=== PATIENT | male | born 1985 | race Caucasian/White ===

== ENCOUNTER 2020-04-21 10:34 | Emergency (ER) | payer OTHER, SELFPAY ==
[2020-04-21] VITALS (16 sets, daily range): BP systolic 177–198; BP diastolic 111–132; PULSE 78–113; RESP 20; TEMP 35.6; O2SAT 95–99; BMI 38.7
[2020-04-21 11:57] LABS: Bilirubin Urine UA NEGATIVE (NEGATIVE); Color Urine UA RED; Glucose Urine UA NEGATIVE (Negative); Ketones Urine UA 2+ (NEGATIVE); Leukocyte Esterase Urine UA NEGATIVE (NEGATIVE); Nitrite Urine UA NEGATIVE (Negative); Occult Blood Urine UA 3+ (Negative); Protein Urine UA 2+ (Negative); Specific Gravity Urine UA 1.025 (1.000-1.035); Urobilinogen Urine UA 0.2 E.U./dL (0.2); pH Urine UA 5.5 (4.5-8.0)
[2020-04-21 12:03] LABS: Appearance Urine UA CLOUDY
[2020-04-21 12:04] LABS: Amorphous Sediment Urine 1+; Bacteria Urine Occasional (0-1); Culture Indicated Urine Specimen Cultured; RBC Urine >100/HPF (0-5/HPF); Squamous Epithelial Cell Urine 0-1 /HPF (0-5/HPF); WBC Urine 1-5/HPF (0-5/HPF)
[2020-04-21 12:31] LABS: Add Manual Diff / Slide Review NO; Basophils Absolute Auto 0 /uL (0-100); Basophils Percent Auto 0.3 % (0-2); Eosinophils Absolute Auto 200 /uL (0-450); Eosinophils Percent Auto 1.9 % (2-4); Hematocrit 51.5 % (41-53); Hemoglobin 17.5 g/dL (13.5-17.5); Lymphocytes Absolute Auto 1300 /uL (1100-4500); Lymphocytes Percent Auto 15.4 % (25-40); Mean Corpuscular Hemoglobin 31.5 PG (26-34); Mean Corpuscular Volume 92.5 fL (80-100); Monocytes Absolute Auto 600 /uL (0-900); Monocytes Percent Auto 6.4 % (3-14); Neutrophils Absolute Auto 6600 /uL (1500-7000); Platelet Count 331 X10^3/uL (150-400); Red Blood Cell Count 5.57 X10^6/uL (4.5-5.9); Red Cell Distribution Width 13.1 % (11.6-14.8); White Blood Cell Count 8.7 X10^3/uL (4.5-11.0)
[2020-04-21 12:38] LABS: Alanine Aminotransferase 58 IU/L (<50); Albumin 5.1 g/dL (3.5-5.0); Albumin Globulin Ratio 1.5 (1.0-2.8); Alkaline Phosphatase 73 U/L (38-126); Aspartate Aminotransferase 42 IU/L (17-59); Blood Urea Nitrogen 16 mg/dL (9-20); Calcium 9.3 mg/dL (8.4-10.2); Carbon Dioxide 24 mmol/L (22-32); Chloride 103 mmol/L (98-107); Estimated Glomerular Filt Rate > 60.0 mL/min (>60); Globulin 3.3 g/dL (1.7-4.1); Glucose 114 mg/dL (70-100); HEMOLYSIS < 15 (0-50); Lipase 28 U/L (23-300); Potassium 3.9 mmol/L (3.4-5.1); Sodium 136 mmol/L (137-145); Total Protein 8.4 g/dL (6.3-8.2)
--- NOTE | 2020-04-21 13:10 | ED.MALEGU ---
HPI - Male Genitourinary <BRIAN Torres-BC - Last Filed: 04/21/20 16:18> General Chief complaint: Urogenital-Male Stated complaint: dark colored urine Red Time Seen by Provider: 04/21/20 11:11 Source: patient Mode of arrival: Family Vehicle Limitations: no limitations History of Present Illness HPI Narrative: The patient is a 34-year-old male current everyday smoker who denies medical history presents with a chief complaint of dark red urine that started today. He denies any pain. Denies any dysuria urgency or frequency. Denies any possibility of sexually transmitted infections. He does note that he is increasingly aware of what he puts in his body of the recently started a ketogenic diet 5 days ago. He states he tries to drink lots of water. No fevers muscle aches or chills. Denies any abdominal pain. Denies any testicular pain. Inactivity at his gym and at work. Initially states that his urine was dark. Related Data Home Medications Medication Instructions Recorded Confirmed [id number] 1 tab PO Q4-6H PRN 04/21/20 04/21/20 [Excedrin Migraine] Previous Rx's Medication Instructions Recorded lisinopril 5 mg PO DAILY #30 tab 04/21/20 nitrofurantoin monohyd/m-cryst 100 mg PO Q12H 7 Days #14 cap 04/21/20 [Macrobid] Allergies Allergy/AdvReac Type Severity Reaction Status Date / Time No Known Drug Allergies Allergy Verified 04/21/20 11:22 Review of Systems <ROXANNE Torres - Last Filed: 04/21/20 16:18> Review of Systems Narrative: GENERAL: Denies chills, fatigue, malaise, fever, sweats. HEENT: Denies sinus pain, ear pain, sore throat, difficulty swallowing, dizziness. RESPIRATORY: Denies dyspnea, cough, wheezing, hemoptysis, sputum. CARDIOVASCULAR: Denies chest pain, palpitations, orthopnea, edema, GASTROINTESTINAL: Denies nausea, vomiting, abdominal pain, diarrhea, constipation, melena. : See HPI MUSCULOSKELETAL: denies weakness, joint pain, or bony pain SKIN: Denies rash, skin lesions, or other NEUROLOGIC: Denies weakness, headache, numbness, change in speech, confusion, seizures, incoordination. PSYCHIATRIC: No concerning psychosocial issues. 12 point review of systems is negative except for those stated above Patient History <ROXANNE Torres - Last Filed: 04/21/20 16:18> Social History Smoking Status: Current every day smoker Smoking Status: Current every day smoker tobacco type: cigarettes alcohol intake frequency: 0-2 drinks per day Substance Use Type: marijuana Exam <ROXANNE Torres - Last Filed: 04/21/20 16:18> Narrative Exam Narrative: GENERAL: This is a well-nourished, well-developed patient, in no acute distress HEAD: Atraumatic. Normocephalic. No temporal or scalp tenderness. EYES: Pupils equal round and reactive. Extraocular motions intact. No scleral icterus. No injection or drainage. ENT: Nose without bleeding, purulent drainage or septal hematoma. Wearing a mask Airway patent. NECK: Trachea midline. No JVD or lymphadenopathy. Supple, nontender, no meningeal signs. CARDIOVASCULAR: Regular rate and rhythm RESPIRATORY: Clear to auscultation. Breath sounds equal bilaterally. No wheezes, rales, or rhonchi. No cough. No increased respiratory effort. No accessory muscle use. GASTROINTESTINAL: Abdomen soft, non-tender, nondistended. No hepato-splenomegaly, or palpable masses. No guarding. EXTREMITIES: No clubbing, cyanosis, or edema. No joint tenderness, effusion, or edema noted. BACK: Nontender without deformity or crepitance. No flank tenderness. NEURO: AOx3. SKIN: No rash or erythema on visible skin Initial Vital Signs Initial Vital Signs: Vital Signs Temperature 96.0 F L 04/21/20 11:23 Pulse Rate 113 H 04/21/20 11:23 Respiratory Rate 20 04/21/20 11:23 Blood Pressure 188/132 H 04/21/20 11:23 Pulse Oximetry 95 04/21/20 11:23 <Marija Arnold DO - Last Filed: 04/21/20 18:15> Initial Vital Signs Initial Vital Signs: Vital Signs Temperature 96.0 F L 04/21/20 11:23 Pulse Rate 113 H 04/21/20 11:23 Respiratory Rate 20 04/21/20 11:23 Blood Pressure 188/132 H 04/21/20 11:23 Pulse Oximetry 95 04/21/20 11:23 Scores <Marija Luz, PATIENT BILLER-BC - Last Filed: 04/21/20 16:18> GCS Jayson coma scale eye opening: Spontaneous Arcade coma scale verbal response: Orientated Arcade coma scale motor response: Obey commands Jayson coma scale total score: 15 Course <Marija LuzMARISOLBC - Last Filed: 04/21/20 16:18> Orders Ordered: ED Orders 04/21/20 11:23 Urinalysis and Microscopic Stat Urine Culture Stat 04/21/20 11:37 Complete Blood Count AUTO DIFF Stat Comprehensive Metabolic Panel Stat Creatine Kinase Stat Lipase Stat 04/21/20 13:33 CT kidney ureter bladder (KUB) Stat Discontinued Medications Acetaminophen (Acetaminophen 325 Mg Tablet) 975 mg PO NOW ONE Stop: 04/21/20 13:34 Last Admin: 04/21/20 13:50 Dose: 975 mg Documented by: JERICA Sodium Chloride (Normal Saline 0.9%) 1,000 mls @ 1,000 mls/hr IV BOLUS ONE Stop: 04/21/20 13:21 Lisinopril (Lisinopril 5 Mg Tablet) 5 mg PO NOW ONE Stop: 04/21/20 13:34 Last Admin: 04/21/20 13:49 Dose: 5 mg Documented by: JERICA Vital Signs Vital signs: Vital Signs - 8 hr 04/21/20 11:23 04/21/20 12:20 04/21/20 12:30 Temperature 96.0 F L Pulse Rate 113 H 90 92 H Respiratory Rate 20 Blood Pressure 188/132 H 189/120 H Pulse Oximetry 95 98 97 04/21/20 12:35 04/21/20 12:59 04/21/20 13:00 Temperature Pulse Rate 90 90 88 Respiratory Rate Blood Pressure 180/114 H 195/121 H Pulse Oximetry 97 98 98 04/21/20 13:19 04/21/20 13:30 04/21/20 13:40 Temperature Pulse Rate 96 H 90 88 Respiratory Rate Blood Pressure 188/116 H 177/111 H Pulse Oximetry 98 99 98 04/21/20 13:49 04/21/20 13:50 04/21/20 14:00 Temperature Pulse Rate 78 Respiratory Rate Blood Pressure 177/111 H 185/119 H 195/128 H Pulse Oximetry 04/21/20 14:31 04/21/20 15:08 04/21/20 15:09 Temperature Pulse Rate 81 81 Respiratory Rate Blood Pressure 197/119 H 198/132 H Pulse Oximetry 98 98 04/21/20 15:10 Temperature Pulse Rate 84 Respiratory Rate Blood Pressure 198/125 H Pulse Oximetry 98 <Marija Arnold, - Last Filed: 04/21/20 18:15> Orders Ordered: ED Orders 04/21/20 11:23 Urinalysis and Microscopic Stat Urine Culture Stat 04/21/20 11:37 Complete Blood Count AUTO DIFF Stat Comprehensive Metabolic Panel Stat Creatine Kinase Stat Lipase Stat 04/21/20 13:33 CT kidney ureter bladder (KUB) Stat Discontinued Medications Acetaminophen (Acetaminophen 325 Mg Tablet) 975 mg PO NOW ONE Stop: 04/21/20 13:34 Last Admin: 04/21/20 13:50 Dose: 975 mg Documented by: JERICA Sodium Chloride (Normal Saline 0.9%) 1,000 mls @ 1,000 mls/hr IV BOLUS ONE Stop: 04/21/20 13:21 Lisinopril (Lisinopril 5 Mg Tablet) 5 mg PO NOW ONE Stop: 04/21/20 13:34 Last Admin: 04/21/20 13:49 Dose: 5 mg Documented by: JERICA Vital Signs Vital signs: Vital Signs - 8 hr 04/21/20 11:23 04/21/20 12:20 04/21/20 12:30 Temperature 96.0 F L Pulse Rate 113 H 90 92 H Respiratory Rate 20 Blood Pressure 188/132 H 189/120 H Pulse Oximetry 95 98 97 04/21/20 12:35 04/21/20 12:59 04/21/20 13:00 Temperature Pulse Rate 90 90 88 Respiratory Rate Blood Pressure 180/114 H 195/121 H Pulse Oximetry 97 98 98 04/21/20 13:19 04/21/20 13:30 04/21/20 13:40 Temperature Pulse Rate 96 H 90 88 Respiratory Rate Blood Pressure 188/116 H 177/111 H Pulse Oximetry 98 99 98 04/21/20 13:49 04/21/20 13:50 04/21/20 14:00 Temperature Pulse Rate 78 Respiratory Rate Blood Pressure 177/111 H 185/119 H 195/128 H Pulse Oximetry 04/21/20 14:31 04/21/20 15:08 04/21/20 15:09 Temperature Pulse Rate 81 81 Respiratory Rate Blood Pressure 197/119 H 198/132 H Pulse Oximetry 98 98 04/21/20 15:10 Temperature Pulse Rate 84 Respiratory Rate Blood Pressure 198/125 H Pulse Oximetry 98 MDM - Male Genitourinary <Marija Luz PATIENT BILLER-BC - Last Filed: 04/21/20 16:18> Lab Data Attestation: I reviewed the patient's lab results. Result diagrams: 04/21/20 11:37 04/21/20 11:37 Labs: Lab Results 04/21/20 04/21/20 04/21/20 Range/Units 11:23 11:37 11:37 WBC 8.7 (4.5-11.0) X10^3/uL RBC 5.57 (4.5-5.9) X10^6/uL Hgb 17.5 (13.5-17.5) g/dL Hct 51.5 (41-53) % MCV 92.5 (80-100) fL MCH 31.5 (26-34) PG MCHC 34.0 (30-36) % RDW 13.1 (11.6-14.8) % Plt Count 331 (150-400) X10^3/uL Neut % (Auto) 76.0 H (50-75) % Lymph % (Auto) 15.4 L (25-40) % Calloway % (Auto) 6.4 (3-14) % Eos % (Auto) 1.9 L (2-4) % Baso % (Auto) 0.3 (0-2) % Neut # (Auto) 6600 (8677-2593) /uL Lymph # (Auto) 1300 (2772-2761) /uL Calloway # (Auto) 600 (0-900) /uL Eos # (Auto) 200 (0-450) /uL Baso # (Auto) 0 (0-100) /uL Sodium 136 L (137-145) mmol/L Potassium 3.9 (3.4-5.1) mmol/L Chloride 103 (98-107) mmol/L Carbon Dioxide 24 (22-32) mmol/L BUN 16 (9-20) mg/dL Creatinine 0.80 (0.66-1.25) mg/dL Estimated GFR > 60.0 (>60) mL/min BUN/Creatinine Ratio 20.0 (6-22) Glucose 114 H (70-100) mg/dL Calcium 9.3 (8.4-10.2) mg/dL Total Bilirubin 1.0 (0.2-1.3) mg/dL AST 42 (17-59) IU/L ALT 58 H (<50) IU/L Alkaline Phosphatase 73 (38-126) U/L Total Creatine Kinase (55-170) U/L Total Protein 8.4 H (6.3-8.2) g/dL Albumin 5.1 H (3.5-5.0) g/dL Globulin 3.3 (1.7-4.1) g/dL Albumin/Globulin Ratio 1.5 (1.0-2.8) Lipase 28 (23-300) U/L Urine Color Red Urine Appearance Cloudy Urine pH 5.5 (4.5-8.0) Ur Specific Lisco 1.025 (1.000-1.035) Urine Protein 2+ H (Negative) Urine Glucose (UA) Negative (Negative) g/dL Urine Ketones 2+ H (NEGATIVE) Urine Occult Blood 3+ H (Negative) Urine Nitrate Negative (Negative) Urine Bilirubin Negative (NEGATIVE) Urine Urobilinogen 0.2 (0.2) E.U./dL Ur Leukocyte Esterase Negative (NEGATIVE) Urine RBC >100/hpf H (0-5/HPF) Urine WBC 1-5/hpf (0-5/HPF) Ur Squamous Epith Cells 0-1 /hpf (0-5/HPF) Amorphous Sediment 1+ Urine Bacteria Occasional (0-1) (None) Ur Culture Indicated? Specimen cultured 04/21/20 Range/Units 11:37 WBC (4.5-11.0) X10^3/uL RBC (4.5-5.9) X10^6/uL Hgb (13.5-17.5) g/dL Hct (41-53) % MCV (80-100) fL MCH (26-34) PG MCHC (30-36) % RDW (11.6-14.8) % Plt Count (150-400) X10^3/uL Neut % (Auto) (50-75) % Lymph % (Auto) (25-40) % Calloway % (Auto) (3-14) % Eos % (Auto) (2-4) % Baso % (Auto) (0-2) % Neut # (Auto) (7199-0555) /uL Lymph # (Auto) (1506-4314) /uL Calloway # (Auto) (0-900) /uL Eos # (Auto) (0-450) /uL Baso # (Auto) (0-100) /uL Sodium (137-145) mmol/L Potassium (3.4-5.1) mmol/L Chloride (98-107) mmol/L Carbon Dioxide (22-32) mmol/L BUN (9-20) mg/dL Creatinine (0.66-1.25) mg/dL Estimated GFR (>60) mL/min BUN/Creatinine Ratio (6-22) Glucose (70-100) mg/dL Calcium (8.4-10.2) mg/dL Total Bilirubin (0.2-1.3) mg/dL AST (17-59) IU/L ALT (<50) IU/L Alkaline Phosphatase (38-126) U/L Total Creatine Kinase 285 H (55-170) U/L Total Protein (6.3-8.2) g/dL Albumin (3.5-5.0) g/dL Globulin (1.7-4.1) g/dL Albumin/Globulin Ratio (1.0-2.8) Lipase (23-300) U/L Urine Color Urine Appearance Urine pH (4.5-8.0) Ur Specific Lisco (1.000-1.035) Urine Protein (Negative) Urine Glucose (UA) (Negative) g/dL Urine Ketones (NEGATIVE) Urine Occult Blood (Negative) Urine Nitrate (Negative) Urine Bilirubin (NEGATIVE) Urine Urobilinogen (0.2) E.U./dL Ur Leukocyte Esterase (NEGATIVE) Urine RBC (0-5/HPF) Urine WBC (0-5/HPF) Ur Squamous Epith Cells (0-5/HPF) Amorphous Sediment Urine Bacteria (None) Ur Culture Indicated? Urine Dip Bedside Urine Glucose Negative Bedside Urine Bilirubin - Negative Bedside Urine Ketone +++ 80 Urine Specific Lisco 1.030 Bedside Urine Occult Blood +++ Bedside Urine pH 5.0 Bedside Urine Protein ++ 100 Bedside Urine Urobilinogen +/- 1mg Bedside Urine Nitrite + Positive Bedside Urine Leukocytes + [address] scan - abdomen/pelvis: Radiologist's Impression: [address] [place] [id number] Scan ReportSigned Patient: Prabha Villa#: [id number]: 1985Acct:[id number]/Sex: 34 / MDate of Service: 04/21/20Loc: EDAccession Number: [id number] Procedure: CT kidney ureter bladder (KUB) Ordering Provider: Marija Luz [facility]- PROCEDURE: CT KIDNEY URETER BLADDER (KUB) INDICATIONS: back pain, hematuria TECHNIQUE: Noncontrast 5 mm thick sections acquired from the diaphragms to the symphysis. 5 mm thick coronal and sagittal reformats were then performed. For radiation dose reduction, the following was used: automated exposure control, adjustment of mA and/or kV according to patient size. COMPARISON: None. FINDINGS: Image quality: Excellent. Lung bases: Lung bases are clear. Heart size is normal. Urinary system: Right kidney: Faint 1 mm lower pole stone. No hydronephrosis. Right ureter: Unremarkable Left kidney: Incidental cyst. No stone or hydronephrosis. Left ureter: Unremarkable. Bladder: No bladder stones. No bladder wall thickening. Other solid organs: Liver is normal in size. Gallbladder is surgically absent. Pancreas is normal in contours. Spleen is normal in size. No adrenal nodules. Peritoneum and bowel: Unenhanced bowel loops demonstrate normal wall thickness and caliber. No free fluid or air. Mild diverticulosis without evidence of diverticulitis. Normal appendix. Nodes and vessels: No retroperitoneal or mesenteric adenopathy by size criteria. Aorta and inferior vena cava are normal in caliber. Abdominal wall: No ventral hernias. Pelvis: No free pelvic fluid. No inguinal hernias or adenopathy. Bones: No suspicious bony lesions. No vertebral body compression fractures. Disc bulge and facet arthropathy at L4-L5 resulting canal stenosis. IMPRESSION: 1. Faint 1 mm nonobstructing right renal stone. 2. No hydronephrosis. No ureteral stone. 3. Remote cholecystectomy. 4. No evidence acute abdominal process. 5. Lumbar canal stenosis at L4-L5. Dictated by: Zheng Padilla M.D. on 04/21/2020 at 12:50 Approved by: Zheng Padilla M.D. on 04/21/2020 at 12:54 MDM Narrative Medical decision making narrative: The patient is a 34-year-old male who presents with a chief complaint of hematuria. Renal function is reassuring, though urine is nitrite positive. Given his hypertension throughout his stay in the ER, we did get a CT KUB to evaluate for obstructive etiology etcetera. This came back with a the small stone in his right kidney, but no ureteral stones. Patient was placed on Macrobid for urinary tract infection as he is nitrate positive urine. Did encourage resting And pushing fluids. Given his discolored urine, so as well as increased workout regimen, CK obtain which was not a rate just slightly elevated. We did give him lisinopril the emergency department, discussed taking that once a day. Discussed plan of care with Dr Arnold. I did discuss at length with the patient is very strict emergency department return precautions particularly chest pain shortness of breath thunderclap sensation as well as the importance of following up with primary care provider in the next few days. I did give him contact information the [facility] health enterprise resource planning consultant. Patient has no questions or concerns upon discharge states understanding of return precautions as well as follow-up care. Urine culture being completed. <Marija Arnold, DO - Last Filed: 04/21/20 18:15> Lab Data Labs: Lab Results 04/21/20 04/21/20 04/21/20 Range/Units 11:23 11:37 11:37 WBC 8.7 (4.5-11.0) X10^3/uL RBC 5.57 (4.5-5.9) X10^6/uL Hgb 17.5 (13.5-17.5) g/dL Hct 51.5 (41-53) % MCV 92.5 (80-100) fL MCH 31.5 (26-34) PG MCHC 34.0 (30-36) % RDW 13.1 (11.6-14.8) % Plt Count 331 (150-400) X10^3/uL Neut % (Auto) 76.0 H (50-75) % Lymph % (Auto) 15.4 L (25-40) % Calloway % (Auto) 6.4 (3-14) % Eos % (Auto) 1.9 L (2-4) % Baso % (Auto) 0.3 (0-2) % Neut # (Auto) 6600 (7258-3401) /uL Lymph # (Auto) 1300 (0857-5897) /uL Calloway # (Auto) 600 (0-900) /uL Eos # (Auto) 200 (0-450) /uL Baso # (Auto) 0 (0-100) /uL Sodium 136 L (137-145) mmol/L Potassium 3.9 (3.4-5.1) mmol/L Chloride 103 (98-107) mmol/L Carbon Dioxide 24 (22-32) mmol/L BUN 16 (9-20) mg/dL Creatinine 0.80 (0.66-1.25) mg/dL Estimated GFR > 60.0 (>60) mL/min BUN/Creatinine Ratio 20.0 (6-22) Glucose 114 H (70-100) mg/dL Calcium 9.3 (8.4-10.2) mg/dL Total Bilirubin 1.0 (0.2-1.3) mg/dL AST 42 (17-59) IU/L ALT 58 H (<50) IU/L Alkaline Phosphatase 73 (38-126) U/L Total Creatine Kinase (55-170) U/L Total Protein 8.4 H (6.3-8.2) g/dL Albumin 5.1 H (3.5-5.0) g/dL Globulin 3.3 (1.7-4.1) g/dL Albumin/Globulin Ratio 1.5 (1.0-2.8) Lipase 28 (23-300) U/L Urine Color Red Urine Appearance Cloudy Urine pH 5.5 (4.5-8.0) Ur Specific Lisco 1.025 (1.000-1.035) Urine Protein 2+ H (Negative) Urine Glucose (UA) Negative (Negative) g/dL Urine Ketones 2+ H (NEGATIVE) Urine Occult Blood 3+ H (Negative) Urine Nitrate Negative (Negative) Urine Bilirubin Negative (NEGATIVE) Urine Urobilinogen 0.2 (0.2) E.U./dL Ur Leukocyte Esterase Negative (NEGATIVE) Urine RBC >100/hpf H (0-5/HPF) Urine WBC 1-5/hpf (0-5/HPF) Ur Squamous Epith Cells 0-1 /hpf (0-5/HPF) Amorphous Sediment 1+ Urine Bacteria Occasional (0-1) (None) Ur Culture Indicated? Specimen cultured 04/21/20 Range/Units 11:37 WBC (4.5-11.0) X10^3/uL RBC (4.5-5.9) X10^6/uL Hgb (13.5-17.5) g/dL Hct (41-53) % MCV (80-100) fL MCH (26-34) PG MCHC (30-36) % RDW (11.6-14.8) % Plt Count (150-400) X10^3/uL Neut % (Auto) (50-75) % Lymph % (Auto) (25-40) % Calloway % (Auto) (3-14) % Eos % (Auto) (2-4) % Baso % (Auto) (0-2) % Neut # (Auto) (4154-5147) /uL Lymph # (Auto) (2759-1119) /uL Calloway # (Auto) (0-900) /uL Eos # (Auto) (0-450) /uL Baso # (Auto) (0-100) /uL Sodium (137-145) mmol/L Potassium (3.4-5.1) mmol/L Chloride (98-107) mmol/L Carbon Dioxide (22-32) mmol/L BUN (9-20) mg/dL Creatinine (0.66-1.25) mg/dL Estimated GFR (>60) mL/min BUN/Creatinine Ratio (6-22) Glucose (70-100) mg/dL Calcium (8.4-10.2) mg/dL Total Bilirubin (0.2-1.3) mg/dL AST (17-59) IU/L ALT (<50) IU/L Alkaline Phosphatase (38-126) U/L Total Creatine Kinase 285 H (55-170) U/L Total Protein (6.3-8.2) g/dL Albumin (3.5-5.0) g/dL Globulin (1.7-4.1) g/dL Albumin/Globulin Ratio (1.0-2.8) Lipase (23-300) U/L Urine Color Urine Appearance Urine pH (4.5-8.0) Ur Specific Lisco (1.000-1.035) Urine Protein (Negative) Urine Glucose (UA) (Negative) g/dL Urine Ketones (NEGATIVE) Urine Occult Blood (Negative) Urine Nitrate (Negative) Urine Bilirubin (NEGATIVE) Urine Urobilinogen (0.2) E.U./dL Ur Leukocyte Esterase (NEGATIVE) Urine RBC (0-5/HPF) Urine WBC (0-5/HPF) Ur Squamous Epith Cells (0-5/HPF) Amorphous Sediment Urine Bacteria (None) Ur Culture Indicated? Urine Dip Bedside Urine Glucose Negative Bedside Urine Bilirubin - Negative Bedside Urine Ketone +++ 80 Urine Specific Lisco 1.030 Bedside Urine Occult Blood +++ Bedside Urine pH 5.0 Bedside Urine Protein ++ 100 Bedside Urine Urobilinogen +/- 1mg Bedside Urine Nitrite + Positive Bedside Urine Leukocytes + 70 Esterase Discharge Plan Departure Patient Disposition: Home Clinical Impression: Calculus, renal Urinary tract infection Qualifiers: Urinary tract infection type: site unspecified Hematuria presence: with hematuria Qualified Code(s): N39.0 - Urinary tract infection, site not specified Hypertension Qualifiers: Hypertension type: unspecified Qualified Code(s): I10 - Essential (primary) hypertension Instructions: The DASH Diet, DASH Diet For a Healthy Blood Pressure, DI for High Blood Pressure, DI for Urinary Tract Infection (UTI), DI for Hematuria Activity Restrictions/Additional Instructions: Thank you for trusting us with your care today. As discussed, please follow-up with primary care provider in the next few days. I am concerned about your elevated blood pressure. I have given you a prescription of lisinopril to help with your blood pressure. Please start this prescription tomorrow. I also sent an antibiotic for the infection in your urine. Your kidney related labs however are good, with no decreased kidney function. The CT scan showed a small stone inside your right kidney, I cannot rule out a stone that has already been passed. Please come back to the emergency department for any acute concerns such as chest pain, shortness of breath concern of heart attack or stroke. Prescriptions: New lisinopril 5 mg tablet 5 mg PO DAILY Qty: 30 RF: 0 nitrofurantoin monohyd/m-cryst [Macrobid] 100 mg capsule 100 mg PO Q12H 7 Days Qty: 14 RF: 0 No Action Excedrin Migraine 250-250-65 mg Tablet 1 tab PO Q4-6H PRN (Reason: Headache) RF: 0 Referrals: [facility] [Outside] Stand Alone Forms: Work Release Note <Marija Arnold, DO - Last Filed: 04/21/20 18:15> Cosign ED Attending Cosignature Attestation: I was immediately available in the department for consultation. Documentation has been reviewed. Case discussed. Patient started on oral hypertensive medication.
[2020-04-21 13:18] LABS: Creatine Kinase 285 U/L (55-170)
--- NOTE | 2020-04-21 13:33 | DI.CT.S_ITS ---
PROCEDURE: CT KIDNEY URETER BLADDER (KUB) INDICATIONS: back pain, hematuria TECHNIQUE: Noncontrast 5 mm thick sections acquired from the diaphragms to the symphysis. 5 mm thick coronal and sagittal reformats were then performed. For radiation dose reduction, the following was used: automated exposure control, adjustment of mA and/or kV according to patient size. COMPARISON: None. FINDINGS: Image quality: Excellent. Lung bases: Lung bases are clear. Heart size is normal. Urinary system: Right kidney: Faint 1 mm lower pole stone. No hydronephrosis. Right ureter: Unremarkable Left kidney: Incidental cyst. No stone or hydronephrosis. Left ureter: Unremarkable. Bladder: No bladder stones. No bladder wall thickening. Other solid organs: Liver is normal in size. Gallbladder is surgically absent. Pancreas is normal in contours. Spleen is normal in size. No adrenal nodules. Peritoneum and bowel: Unenhanced bowel loops demonstrate normal wall thickness and caliber. No free fluid or air. Mild diverticulosis without evidence of diverticulitis. Normal appendix. Nodes and vessels: No retroperitoneal or mesenteric adenopathy by size criteria. Aorta and inferior vena cava are normal in caliber. Abdominal wall: No ventral hernias. Pelvis: No free pelvic fluid. No inguinal hernias or adenopathy. Bones: No suspicious bony lesions. No vertebral body compression fractures. Disc bulge and facet arthropathy at L4-L5 resulting canal stenosis. IMPRESSION: 1. Faint 1 mm nonobstructing right renal stone. 2. No hydronephrosis. No ureteral stone. 3. Remote cholecystectomy. 4. No evidence acute abdominal process. 5. Lumbar canal stenosis at L4-L5. Dictated by: Zheng Padilla M.D. on 04/21/2020 at 12:50 Approved by: Zheng Padilla M.D. on 04/21/2020 at 12:54
[2020-04-21] MEDS: lisinopriL 5 MG TABLET PO (13:49)
[2020-04-21] MEDS: ACETAMINOPHEN 325 MG TABLET 975 MG PO (13:50)
== END 2020-04-21 16:05 | disposition home or self-care (01) ==
PROVIDERS: Emergency Medicine; Emergency Provider Nurse Practitioner Family
DX: N20.0 Calculus of kidney (principal); N39.0 Urinary tract infection, site not specified; R31.9 Hematuria, unspecified; I10 Essential (primary) hypertension
CPT/HCPCS: 36415; 74176; 80053; 81001; 81003; 82550; 83690; 85025; 87086; 99283; 99284

== ENCOUNTER 2024-01-16 11:21 | Emergency (ER) | payer SELFPAY ==
[2024-01-16] VITALS (24 sets, daily range): BP systolic 125–243; BP diastolic 77–165; PULSE 83–106; RESP 14–23; TEMP 36.7; O2SAT 92–99; BMI 41.5
--- NOTE | 2024-01-16 11:33 | DI.RAD.S_ITS ---
PROCEDURE: XR CHEST 1V INDICATIONS: chest pain TECHNIQUE: One view of the chest was acquired. COMPARISON: None. FINDINGS: Surgical changes and devices: None. Lungs and pleura: Lungs are clear. No pleural effusions or pneumothorax. Mediastinum: Mediastinal contours appear normal. Heart size is normal. Bones and chest wall: No suspicious bony lesions. Overlying soft tissues appear unremarkable. IMPRESSION: no acute cardiopulmonary pathology. Dictated by: Paul Bradford M.D. on 01/16/2024 at 12:39 Approved by: Paul Bradford M.D. on 01/16/2024 at 12:39
--- NOTE | 2024-01-16 11:39 | EKG_ITS ---
[address] [address] Test Date: 2024-01-16 Pat Name: Phill Villa Department: Room: Gender: Male Parish Visitor: SANDRA : 1985 Requested By: Order Number: [id number] Reading MD: Chao Zhao MD Measurements Intervals [place] Rate: 91 P: 14 MO: 162 QRS: -17 QRSD: 110 T: 83 QT: 394 QTc: 484 Interpretive Statements Normal sinus rhythm Moderate voltage criteria for LVH, may be normal variant ( R in aVL , [place] product ) T wave abnormality, consider lateral ischemia NO PRIOR TRACING Electronically Signed On 01-16-2024 17:07:29 PST by Chao Zhao MD
--- NOTE | 2024-01-16 11:48 | PC.NURSE ---
patient reports having high blood pressure off and on for a while and is being managed by his doctor with HTN meds. He stated his presenting reason to ED was simply due to high BP reading today. He denies chest pain and SOB but upon further evaluation he states he has a headache and is having trouble thinking and focusing and does not feel well. His friends pointed out that he has been rubbing his left chest today and seems to be having a hard time focusing on his phone today. Iv placed and blood obtained for lab. Placed on continuous cardiac monitoring and EKG was taken and given to the doc.
[2024-01-16 11:53] LABS: Add Manual Diff / Slide Review NO; Basophils Absolute Auto 0 /uL (0-100); Basophils Percent Auto 0.5 % (0-2); Eosinophils Absolute Auto 200 /uL (0-450); Hematocrit 54.7 % (41-53); Hemoglobin 18.6 g/dL (13.5-17.5); Lymphocytes Absolute Auto 1500 /uL (1100-4500); Lymphocytes Percent Auto 17.3 % (25-40); Mean Corpuscular Hemoglobin 31.1 PG (26-34); Mean Corpuscular Volume 91.4 fL (80-100); Monocytes Absolute Auto 600 /uL (0-900); Monocytes Percent Auto 6.7 % (3-14); Neutrophils Absolute Auto 6400 /uL (1500-7000); Neutrophils Percent Auto 73.5 % (50-75); Platelet Count 359 X10^3/uL (150-400); Red Blood Cell Count 5.99 X10^6/uL (4.5-5.9); Red Cell Distribution Width 13.6 % (11.6-14.8); White Blood Cell Count 8.8 X10^3/uL (4.5-11.0)
[2024-01-16 11:56] LABS: Prothrombin Time 10.8 SECONDS (9.4-12.5)
[2024-01-16 11:59] LABS: PTT Partial Thromboplastin Tim 38 SECONDS (25.1-36.5)
[2024-01-16 12:00] LABS: Alanine Aminotransferase 93 IU/L (<50); Albumin 4.8 g/dL (3.5-5.0); Albumin Globulin Ratio 1.5 (1.0-2.8); Alkaline Phosphatase 77 U/L (38-126); Aspartate Aminotransferase 50 IU/L (17-59); BUN Creatinine Ratio 16.8 (6-22); Bilirubin Total 0.9 mg/dL (0.2-1.3); Blood Urea Nitrogen 18 mg/dL (9-20); Calcium 9.1 mg/dL (8.4-10.2); Carbon Dioxide 21 mmol/L (22-32); Chloride 105 mmol/L (98-107); Creatine Kinase 97 U/L (55-170); Estimated Glomerular Filt Rate > 60 mL/min (>60); Globulin 3.1 g/dL (1.7-4.1); Glucose 131 mg/dL (70-100); HEMOLYSIS 31 (0-50); Lipase 175 U/L (23-300); Potassium 3.7 mmol/L (3.4-5.1); Sodium 136 mmol/L (137-145); Total Protein 7.9 g/dL (6.3-8.2)
[2024-01-16] MEDS: ASPIRIN 81 MG CHEW TAB 324 MG PO (12:00)
[2024-01-16 12:12] LABS: NT-proBNP (BNP-Adult 18+) 199 pg/mL (<125); Troponin I 0.038 ng/mL (0.01-0.034)
--- NOTE | 2024-01-16 12:18 | ED.GENADULT ---
HPI - General Adult General Chief complaint: Hypertension Stated complaint: BP t-3 205/161 Time Seen by Provider: 01/16/24 12:14 Source: patient, RN notes reviewed and old records reviewed Mode of arrival: Ambulatory Limitations: no limitations History of Present Illness HPI narrative: 38-year-old male history of hypertension presents with complaint of elevated blood pressure patient checks his blood pressure regularly he states the last several days that has been higher than it usually is 190 to 200s for his systolic and 90 to 120s for his diastolic. He states in the afternoon that has also been quite elevated. He will often have blood pressure in the 200 range. He states he has had occasional mild headache but has had some in the last 24 hours. He denies any chest pain or pressure, no shortness of breath. No nausea or vomiting. No she was bowel movements urination, no swelling of extremities. No back or flank pain. Patient denies any other numbness tingling or weakness accepts sometimes around his lips. Patient takes his medications in the morning his last doses were at 6:30 a.m. this morning. He takes losartan 50 mg morning, hydralazine 25 mg once daily and amlodipine 5 mg once daily. He states he follows with a physician on [facility]. He states he had blood pressures that were fairly normal in high school when he was very athletic but since then have always been elevated. States his father and grandfather both from cancer, he has not uncle who has tinnitus and vertigo but no known cardiac or hypertensive issues in his family that he is aware of. No known drug allergies. Does use tobacco, stopped using alcohol, occasional marijuana denies any recreational drugs. Related Data Home Medications Medication Instructions Recorded Confirmed leiqipj-oiqtripvfeewp-yoxlensc 250 1 tab PO Q4-6H PRN Headache 04/21/20 04/21/20 mg-250 mg-65 mg tablet (Excedrin Migraine) Previous Rx's Medication Instructions Recorded lisinopril 5 mg tablet 5 mg PO DAILY #30 tabs 04/21/20 Allergies Allergy/AdvReac Type Severity Reaction Status Date / Time No Known Drug Allergies Allergy Verified 04/21/20 11:22 Review of Systems Review of Systems ROS Unobtainable: All systems reviewed & are unremarkable except as noted in HPI and below Patient History Social History Smoking Status: Current every day smoker Smoking Status: Current every day smoker tobacco type: cigarettes alcohol intake frequency: 0-2 drinks per day Exam Narrative Exam Narrative: GENERAL: Alert and oriented x three, obese male in mild distress. HEENT: Head normocephalic, atraumatic, EOMI, pupils reactive, face symmetric, moist mucous membranes NECK: Supple, full range of motion CARDIOVASCULAR: Regular rate and rhythm without murmurs, rubs or gallops. No JVD. No edema bilateral lower extremities. RESPIRATORY: Breath sounds equal bilaterally, no wheezes rales or rhonchi. ABDOMEN: Soft, nontender. Normoactive bowel sounds all 4 quadrants. No guarding or rebound, rigidity, no mass : No CVA tenderness EXTREMITIES: Normal range of motion, no clubbing or edema. Neurovascularly intact NEUROLOGICAL: Cranial nerves II through XII grossly intact. Moving all extremities SKIN: Warm, dry, no petechiae, no rashes or lesions. Initial Vital Signs Initial Vital Signs: Vital Signs Temperature 98.1 F 01/16/24 11:27 Pulse Rate 102 H 01/16/24 11:27 Respiratory Rate 20 01/16/24 11:27 Blood Pressure 125/77 01/16/24 11:27 Pulse Oximetry 99 01/16/24 11:27 Oxygen Delivery Method Room Air 01/16/24 11:27 Course Orders Ordered: ED Orders 01/16/24 11:33 XR chest 1V Stat EKG-12 Lead Stat 01/16/24 11:40 Complete Blood Count AUTO DIFF Stat Comprehensive Metabolic Panel Stat Lipase Stat Magnesium Stat NT-proBNP (BNP-Adult 18+) Stat PTT Partial Thromboplastin Arnold Stat Prothrombin Time INR Stat Troponin & CK Cardiac Panel Stat 01/16/24 12:21 CT head/brain wo con Stat 01/16/24 12:38 CT angio chest abdomen pelvis Stat 01/16/24 12:49 Consult to GRAVEL WHEELER - Relay Record Clerk Stat 01/16/24 13:33 EKG-12 Lead Stat 01/16/24 13:50 Trop I [Troponin I] Stat Discontinued Medications Aspirin (Aspirin 81 Mg Chew Tab) 324 mg PO NOW ONE Stop: 01/16/24 11:34 Last Admin: 01/16/24 12:00 Dose: 324 mg Documented By: BIANCA Hydralazine HCl (Hydralazine 25 Mg Tablet) 25 mg PO NOW ONE Stop: 01/16/24 12:42 Last Admin: 01/16/24 12:45 Dose: 25 mg Documented By: BIANCA Labetalol HCl (Labetalol 20 Mg/4 Ml Syringe) 10 mg IV NOW ONE Stop: 01/16/24 15:20 Last Admin: 01/16/24 15:25 Dose: 10 mg Documented By: BIANCA Nitroglycerin (Nitroglycerin 0.4 Mg Sl Tab) 0.4 mg SL NOW ONE Stop: 01/16/24 12:34 Last Admin: 01/16/24 12:38 Dose: 0.4 mg Documented By: BIANCA Vital Signs Vital signs: Vital Signs - 8 hr 01/16/24 11:27 01/16/24 11:32 01/16/24 11:34 Temperature 98.1 F Pulse Rate 102 H 105 H Respiratory Rate 20 Blood Pressure 125/77 242/165 H Pulse Oximetry 99 96 Oxygen Delivery Method Room Air 01/16/24 11:34 01/16/24 11:37 01/16/24 11:37 Temperature Pulse Rate 94 H 96 H Respiratory Rate 14 14 Blood Pressure 243/156 H Pulse Oximetry 94 95 Oxygen Delivery Method 01/16/24 12:00 01/16/24 12:30 01/16/24 12:31 Temperature Pulse Rate 90 95 H 93 H Respiratory Rate 16 23 20 Blood Pressure Pulse Oximetry 96 95 95 Oxygen Delivery Method 01/16/24 12:31 01/16/24 12:38 01/16/24 12:45 Temperature Pulse Rate 92 H 104 H Respiratory Rate Blood Pressure 220/150 H 220/150 H 206/136 H Pulse Oximetry Oxygen Delivery Method 01/16/24 12:46 01/16/24 12:46 01/16/24 13:11 Temperature Pulse Rate 106 H 93 H Respiratory Rate 18 18 Blood Pressure 206/136 H Pulse Oximetry 95 92 Oxygen Delivery Method 01/16/24 13:12 01/16/24 13:12 01/16/24 13:30 Temperature Pulse Rate 93 H 93 H Respiratory Rate 17 17 Blood Pressure 228/150 H Pulse Oximetry 97 96 Oxygen Delivery Method 01/16/24 13:31 01/16/24 13:31 01/16/24 14:00 Temperature Pulse Rate 96 H 94 H Respiratory Rate 23 20 Blood Pressure 201/130 H Pulse Oximetry 96 96 Oxygen Delivery Method 01/16/24 14:00 01/16/24 14:30 01/16/24 14:30 Temperature Pulse Rate 91 H Respiratory Rate 21 Blood Pressure 215/151 H 217/142 H Pulse Oximetry 96 Oxygen Delivery Method 01/16/24 15:00 01/16/24 15:00 01/16/24 15:20 Temperature Pulse Rate 88 90 Respiratory Rate 22 20 Blood Pressure 224/138 H Pulse Oximetry 97 94 Oxygen Delivery Method 01/16/24 15:20 01/16/24 15:25 01/16/24 15:28 Temperature Pulse Rate 97 H 91 H Respiratory Rate 21 Blood Pressure 223/152 H 223/152 H Pulse Oximetry 98 Oxygen Delivery Method 01/16/24 15:28 01/16/24 15:30 01/16/24 15:30 Temperature Pulse Rate 91 H Respiratory Rate 20 Blood Pressure 238/161 H 233/158 H Pulse Oximetry 98 Oxygen Delivery Method 01/16/24 16:00 01/16/24 16:00 01/16/24 16:28 Temperature Pulse Rate 83 91 H Respiratory Rate 20 Blood Pressure 209/150 H Pulse Oximetry 96 97 Oxygen Delivery Method 01/16/24 16:28 01/16/24 16:31 Temperature Pulse Rate 91 H Respiratory Rate 14 Blood Pressure 216/155 H 216/155 H Pulse Oximetry 96 Oxygen Delivery Method Medical Decision Making Lab Data 01/16/24 11:40 01/16/24 11:40 Labs: Lab Results 01/16/24 01/16/24 Range/Units 11:40 13:50 WBC 8.8 (4.5-11.0) X10^3/uL RBC 5.99 H (4.5-5.9) X10^6/uL Hgb 18.6 H (13.5-17.5) g/dL Hct 54.7 H (41-53) % MCV 91.4 (80-100) fL MCH 31.1 (26-34) PG MCHC 34.0 (30-36) % RDW 13.6 (11.6-14.8) % Plt Count 359 (150-400) X10^3/uL Neut % (Auto) 73.5 (50-75) % Lymph % (Auto) 17.3 L (25-40) % [place] % (Auto) 6.7 (3-14) % Eos % (Auto) 2.0 (2-4) % Baso % (Auto) 0.5 (0-2) % Neut # (Auto) 6400 (0293-2748) /uL Lymph # (Auto) 1500 (6091-6732) /uL [place] # (Auto) 600 (0-900) /uL Eos # (Auto) 200 (0-450) /uL Baso # (Auto) 0 (0-100) /uL PT 10.8 (9.4-12.5) SECONDS INR 1.0 (0.9-1.3) APTT 38 H (25.1-36.5) SECONDS Sodium 136 L (137-145) mmol/L Potassium 3.7 (3.4-5.1) mmol/L Chloride 105 (98-107) mmol/L Carbon Dioxide 21 L (22-32) mmol/L BUN 18 (9-20) mg/dL Creatinine 1.07 (0.66-1.25) mg/dL Estimated GFR > 60 (>60) mL/min BUN/Creatinine Ratio 16.8 (6-22) Glucose 131 H (70-100) mg/dL Calcium 9.1 (8.4-10.2) mg/dL Magnesium 2.0 (1.6-2.3) mg/dL Total Bilirubin 0.9 (0.2-1.3) mg/dL AST 50 (17-59) IU/L ALT 93 H (<50) IU/L Alkaline Phosphatase 77 (38-126) U/L Total Creatine Kinase 97 (55-170) U/L Troponin I 0.038 H 0.042 H (0.01-0.034) ng/mL NT-Pro-B Natriuret Pep 199 H (<125) pg/mL Total Protein 7.9 (6.3-8.2) g/dL Albumin 4.8 (3.5-5.0) g/dL Globulin 3.1 (1.7-4.1) g/dL Albumin/Globulin Ratio 1.5 (1.0-2.8) Lipase 175 (23-300) U/L Imaging Data Chest x-ray: Radiologist's Impression: [address] [address] XRay Report Signed Patient: Phill Villa MR#: [id number] : 1985 Acct:[id number] Age/Sex: 38 / M Date of Service: 01/16/24 Loc: ED Accession Number: [id number] Procedure: XR chest 1V Ordering Provider: Marija Arnold D.O. PROCEDURE: XR CHEST 1V INDICATIONS: chest pain TECHNIQUE: One view of the chest was acquired. COMPARISON: None. FINDINGS: Surgical changes and devices: None. Lungs and pleura: Lungs are clear. No pleural effusions or pneumothorax. Mediastinum: Mediastinal contours appear normal. Heart size is normal. Bones and chest wall: No suspicious bony lesions. Overlying soft tissues appear unremarkable. IMPRESSION: no acute cardiopulmonary pathology. Dictated by: Paul Bradford M.D. on 01/16/2024 at 12:39 Approved by: Paul Bradford M.D. on 01/16/2024 at 12:39 CT scan - head: Radiologist's Impression: Close Chest/Abdomen/Pelvis CTA 01/16/[address] (Signed) Melvin Reddy - 01/16/24 Chest X-Ray (Signed) Paul Bradford - 01/16/24 Abdomen/Pelvis CT (Signed) Zheng Padilla - 04/21/20 [place] [address] CT Scan Report Signed Patient: Phill Villa MR#: [id number] : 1985 Acct:[id number] Age/Sex: 38 / M Date of Service: 01/16/24 Loc: ED Accession Number: [id number] Procedure: CT head/brain wo con Ordering Provider: Marija Arnold D.O. PROCEDURE: CT HEAD/BRAIN WO CON INDICATIONS: meza, htn TECHNIQUE: Noncontrast 4.5 mm thick angled axial sections acquired from the foramen magnum to the vertex, with coronal and sagittal reformats. For radiation dose reduction, the following was used: automated exposure control, adjustment of mA and/or kV according to patient size. COMPARISON: None. FINDINGS: Image quality: Diagnostic. CSF spaces: Basal cisterns are patent. No extra-axial fluid collections. Ventricles are normal in size and shape. Brain: No midline shift. No intracranial masses or hemorrhage. Pearson-white matter interface is normal. Skull and face: Calvarium and visualized facial bones are intact, without suspicious lesions. Sinuses: Visualized sinuses and mastoids are clear. IMPRESSION: No acute intracranial pathology. Approved by: Melvin Reddy M.D. on 01/16/2024 at 12:30 ECG Data Attestation: I personally reviewed and interpreted this ECG as follows: Prior ECG tracings: not available for review Interpretation: Sinus rhythm rate of 91 SD 162 QRS of 110 QTC of 44, LVH no acute ST elevation or depression. No prior for comparison. EKG shows sinus rhythm rate of 95 SD 166 QRS of 110 QTC of 487, criteria for LVH, nonspecific. No dynamic changes from 1st to 2nd EKG appreciated. MDM Narrative Medical decision making narrative: 38-year-old male presents with complaint of elevated blood pressures particularly in the last several days but chronically. Patient's medications are losartan 50 mg daily, hydralazine 25 mg which he only takes once daily and amlodipine. Patient had his morning medications hypertensive in the low to mid 200s systolic range up to 150 diastolic range. Notes some occasional headache no chest pain or pressure but troponin is indeterminate on initial workup for end-organ disease. Labs show white count 8.8 hemoglobin of 18 platelets of 359, sodium is 136 CO2 is 21 potassium 3.7 chloride of 105 BUN 18 creatinine 1.07 with a glucose of 131 Mag is 2, ALT is 93 but otherwise normal bilirubin AST and lipase. Troponin 0.038 with a BNP of 199. Troponin was repeated and is 0.042 and slightly trending upwards. EKG shows sinus rhythm with LVH, consider lateral ischemia. Patient does not have priors for comparison. Head CT is negative for acute change CT chest abdomen pelvis was obtained as patient's troponin was indeterminate could be from side hypertensive urgency/emergency also concern for potential dissection. Imaging shows unremarkable CT angiogram chest abdomen pelvis aorta no evidence of plaque stenosis aneurysm or dissection left ventricular wall thickening consistent with hypertrophic cardiomyopathy Patient was given nitro sublingual does take hydralazine which can have some rebound hypertension so was also given dose of oral hydralazine in the department. Patient is felt radiation blood pressure is 217/142, patient initially was to 40s over 150s. Spoke with Dr. Henry, hospitalist accepts for observation for hypertensive urgency asks that we give labetolol 10mg IV and will take over from there. Discussed with patient he is reluctant to stay, he had a stay at [facility] similar circumstances states they did not really do anything they did not adjust his medications and he out a very large financial bill. After discussion patient elects to return home did discuss risks versus benefits. He does understand the risks he understands it his cardiac enzyme although not positive is trending upwards concern for potential heart attack or cardiac safety. Patient is agreeable to adjusting his medications. States he will call his physician 1st thing in the morning as well. There were some difficulty with having his script sent so was given handwritten prescriptions to adjust his medications for the short term. Did also discussed the importance of following up for evaluation for secondary causes of his hypertension. Patient is aware he can return at any time. Discharge Plan Departure Patient Disposition: Left Against Medical Advice Clinical Impression: Hypertensive urgency Instructions: DI for Malignant Hypertension Activity Restrictions/Additional Instructions: Follow up with your primary care physician, please call to set up follow up to be evaluated for secondary causes of hypertension and continued adjustment of your medication. It is recommended that you stay for observation overnight, your blood pressure is quite elevated and your heart enzyme although not positive is elevated and concerning for injury to your heart.? I do recommend that your blood pressure medications be adjusted.? Prescriptions are included in your discharge papers. Continue your losartan 100 mg daily Increase your amlodipine to 10 mg daily. I would also increase your hydralazine from 25 mg once daily to 25 mg 3 times daily this is a short-acting medication in his typically taken several times daily.? Please return for new or worsening symptoms, chest pain, shortness of breath, lightheadedness or passing out, swelling of your extremities, vision changes or other new or concerning changes. Prescriptions: New amlodipine 10 mg tablet 10 mg PO DAILY Qty: 30 0RF hydralazine 25 mg tablet 25 mg PO TID Qty: 30 0RF amlodipine 10 mg tablet 10 mg PO DAILY Qty: 30 0RF hydralazine 25 mg tablet 25 mg PO TID Qty: 30 0RF amlodipine 10 mg tablet 10 mg PO DAILY Qty: 30 0RF No Action Excedrin Migraine 250-250-65 mg Tablet 1 tab PO Q4-6H PRN (Reason: Headache) lisinopril 5 mg tablet 5 mg PO DAILY Qty: 30 0RF Stand Alone Forms: Patient Portal/API, Against Medical Advice
--- NOTE | 2024-01-16 12:21 | DI.CT.S_ITS ---
PROCEDURE: CT HEAD/BRAIN WO CON INDICATIONS: meza, htn TECHNIQUE: Noncontrast 4.5 mm thick angled axial sections acquired from the foramen magnum to the vertex, with coronal and sagittal reformats. For radiation dose reduction, the following was used: automated exposure control, adjustment of mA and/or kV according to patient size. COMPARISON: None. FINDINGS: Image quality: Diagnostic. CSF spaces: Basal cisterns are patent. No extra-axial fluid collections. Ventricles are normal in size and shape. Brain: No midline shift. No intracranial masses or hemorrhage. Pearson-white matter interface is normal. Skull and face: Calvarium and visualized facial bones are intact, without suspicious lesions. Sinuses: Visualized sinuses and mastoids are clear. IMPRESSION: No acute intracranial pathology. Approved by: Melvin Reddy M.D. on 01/16/2024 at 12:30
[2024-01-16] MEDS: NITROGLYCERIN 0.4 MG SL TAB SL (12:38)
--- NOTE | 2024-01-16 12:38 | DI.CT.S_ITS ---
PROCEDURE: CT ANGIO CHEST ABDOMEN PELVIS INDICATIONS: htn, no pain, elevated trop TECHNIQUE: Precontrast 5 mm thick sections acquired from the lung apices to the iliac crests. After the administration of intravenous contrast, 2.5 mm thick sections again acquired from the lung apices to the iliac crests. Maximum intensity projection (MIP) oblique sagittal and coronal reformats were then acquired. For radiation dose reduction, the following was used: automated exposure control. COMPARISON: None. FINDINGS: Chest: Cardiovascular: Heart size is normal overall, however, left ventricular mild cardiomegaly is smoothly thickened. No evidence of pulmonary embolism, aortic aneurysm or dissection. Lungs and pleural spaces: The lung putnam are clear without nodule, infiltrate or interstitial prominence. Pleural spaces show no effusion or pneumothorax. Lymph nodes: No mediastinal, hilar or axillary adenopathy. Mediastinum: Unremarkable. No hiatal hernia. Thyroid within normal limits. Chest Wall and Bones: Unremarkable. No acute fracture. Abdomen and Pelvis: Liver: Normal in size and attenuation. No contour deformity present. Biliary system: Cholecystectomy Pancreas: Unremarkable without mass or inflammation evident. Spleen: Normal in size and density. Adrenals: Normal morphology and density. Reproductive system: Unremarkable as visualized. Urinary system: Normal renal size and attenuation. No renal calculi, hydronephrosis, or solid mass present. Urinary bladder unremarkable. Gastrointestinal system: The bowel is unremarkable with no evidence of bowel obstruction or inflammation. The stomach appears unremarkable. Appendix: No findings to suggest acute appendicitis. Lymph nodes: No mesenteric or retroperitoneal adenopathy. Peritoneal spaces: No free air. No free fluid. Vasculature: The IVC, aorta and iliac vasculature are unremarkable. Abdominal wall: Abdominal wall intact without evidence of ventral or inguinal hernias. Musculoskeletal: Normal bone mineralization. Degenerative disc disease and arthropathy noted in lower lumbar spine. No acute fractures. IMPRESSION: Unremarkable CT angiogram of the aorta in the chest, abdomen and pelvis. No evidence of atherosclerotic plaque, stenosis, aneurysm or dissection. Left ventricular wall thickening consistent with hypertrophic cardiomyopathy. Consider echocardiographic correlation. Approved by: Melvin Reddy M.D. on 01/16/2024 at 13:27
[2024-01-16] MEDS: HYDRALAZINE 25 MG TABLET PO (12:45)
--- NOTE | 2024-01-16 13:41 | CM.SWNOTE ---
Addendum entered by Cristina Dumont 01/16/24 15:36: Upon writing this note, it is reported that patient chooses to d/c to home rather than pursue OBS admission. KIET Ricardo Addendum entered by Cristina Dumont 01/16/24 15:30: Initial DCP Assessment Note Please see initial note below. This patient is being admitted as OBS by hospitalist due to concern for Hypertensive urgency. Patient has hx of this last year when he was admitted to [facility]. Patient has hx of Hypertension. Patient presents as A/Ox4, independent with ADLs, works at [employer]. Patient is present in ED with friend. Patient denies DCP/ADOBE BLOCK MAKER needs upon d/c at this time. Although, DCP to f/u with registration and patient regarding his insurance information. Patient would benefit from PCP and outpatient f/u as well. Plan: Patient admitted for further evaluation and treatment, DCP to f/u on patient's insurance, patient likely to d/c to home upon medical clearance with no d/c needs a this time. KIET Ricardo Discharge Planning/Care Management CM Discharge Assessment Start: 01/16/24 15:27 Freq: Status: Active Protocol: Document 01/16/24 15:28 LN (Rec: 01/16/24 15:30 LN [id number]) Discharge Planning Assessment Assigned Manager Assessment KIET Evans Advance Directives? No Advance Directives on File No History Provided By Patient Has Patient been admitted in last 30 No days? Prior Living Arrangements House Type of transporation used prior to Drives own vehicle admit Independent with ADL's Yes Is patient alert and oriented? Yes Comment Patient would benefit from PCP follow up once insurance issue is resolved. Discharge Plan Home Referrals Initiated None needed Original Note: ED ADOBE BLOCK MAKER Note Patient is 38 y/o male who presents to the ED due to concern for elevated BP. Patient does not have PCP listed and patient's [place] insurance is coming up as inactive per registration. ADOBE BLOCK MAKER reviews patient with registration and it is reported that they provided patient with a adrian care packet and encouraged patient to call back when he knows his current insurance. It is reported that patient is employed by [employer] and has current insurance. ADOBE BLOCK MAKER enters room to meet with patient, patient states he plans to call his employer's HR department tomorrow and will follow up with [facility] to report current insurance information. Patient denies any further concerns or needs from ADOBE BLOCK MAKER. Plan: Patient is receiving further medical evaluation in the ED, patient likely to d/c upon medical clearance, patient to f/u on insurance issue and confirm current insurance with [facility]. Cristina Dumont, ENGINEERING TECHNOLOGIST
--- NOTE | 2024-01-16 13:55 | EKG_ITS ---
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
[2024-01-16 14:20] LABS: Troponin I 0.042 ng/mL (0.01-0.034)
[2024-01-16] MEDS: LABETALOL 20 MG/4 ML SYRINGE 10 MG IV (15:25)
== END 2024-01-16 16:35 | disposition left against medical advice (07) ==
LOC: ED 12:18 → AC 15:26
PROVIDERS: Emergency Provider Emergency Medicine; Referring Provider Emergency Medicine
DX: I16.0 Hypertensive urgency (principal); R07.9 Chest pain, unspecified; R94.31 Abnormal electrocardiogram [ECG] [EKG]; R79.89 Other specified abnormal findings of blood chemistry
CPT/HCPCS: 36415; 70450; 71045; 71275; 74174; 80053; 82550; 83690; 83735; 83880; 84484; 85025; 85610; 85730; 93005; 93010; 96374; 99284; 99285; Q9967

== ENCOUNTER 2025-01-24 18:19 | Emergency (ER) | payer OTHER, SELFPAY ==
[2025-01-24 18:26] VITALS: BP 175/121; PULSE 93; RESP 21; TEMP 36.5; O2SAT 96; BMI 42.6
--- NOTE | 2025-01-24 20:36 | ED.RECABL ---
HPI - Recheck/Abnormal Lab/Rx General Chief Complaint: Recheck/Abnormal Lab/Rx Stated Complaint: Needs BP prescription Time Seen by Provider: 01/24/25 19:13 Source: patient Mode of arrival: Ambulatory History of Present Illness HPI narrative: 39-year-old gentleman history of high blood pressure on losartan 100 amlodipine 5 carvedilol 6.25 b.i.d. and dyslipidemia on atorvastatin 80 mg here for medication refill for all 4 medicines as he is trying to get established back with a PCP and only has a few pills left of each.Patient has no other symptoms at this time. Other than what is stated 14 point review of system is negative Related Data Home Medications ?Medication ?Instructions ?Recorded ?Confirmed [id number] 250 1 tab PO Q4-6H PRN Headache 04/21/20 04/21/20 mg-250 mg-65 mg tablet (Excedrin Migraine) Previous Rx's ?Medication ?Instructions ?Recorded lisinopril 5 mg tablet 5 mg PO DAILY #30 tabs 04/21/20 amlodipine 5 mg tablet 5 mg PO DAILY #30 tabs 01/24/25 atorvastatin 80 mg tablet 80 mg PO BEDTIME #30 tabs 01/24/25 carvedilol 6.25 mg tablet 6.25 mg PO BID #60 tabs 01/24/25 losartan 100 mg tablet 100 mg PO DAILY #30 tabs 01/24/25 Allergies Allergy/AdvReac Type Severity Reaction Status Date / Time No Known Drug Allergies Allergy Verified 01/24/25 18:30 Review of Systems Review of Systems ROS Unobtainable: All systems reviewed & are unremarkable except as noted in HPI and below Patient History Medical History (Updated 01/24/25 @ 20:39 by Chao Sanders, ) Hypertension tobacco type: cigarettes alcohol intake frequency: 0-2 drinks per day Exam Narrative Exam Narrative: GENERAL: [39] year old patient appears stated age. Well-developed patient, in mild distress. HEAD: Atraumatic. Normocephalic. EYES: Pupils equal round and reactive. Extraocular motions intact. No scleral icterus. No injection or drainage. NECK: Trachea midline. Non tender CARDIOVASCULAR: Regular rate and rhythm without murmurs, gallops, or rubs. RESPIRATORY: Clear to auscultation. Breath sounds equal bilaterally. No wheezes, rales, or rhonchi. EXTREMITIES: No edema or joint tenderness. BACK: Nontender without deformity or crepitance. No flank tenderness. NEURO: AOx3. SKIN: No rash or erythema of visible areas Initial Vital Signs Initial Vital Signs: Vital Signs Temperature 97.7 F 01/24/25 18:26 Pulse Rate 93 H 01/24/25 18:26 Respiratory Rate 21 01/24/25 18:26 Blood Pressure 175/121 H 01/24/25 18:26 Pulse Oximetry 96 01/24/25 18:26 Oxygen Delivery Method Room Air 01/24/25 18:26 Course Vital Signs Vital signs: Vital Signs - 8 hr 01/24/25 18:26 Temperature 97.7 F Pulse Rate 93 H Respiratory Rate 21 Blood Pressure 175/121 H Pulse Oximetry 96 Oxygen Delivery Method Room Air MDM - Recheck/Abnormal Lab/Rx MDM Narrative Medical decision making narrative: All lab work, vital signs, nurse triage note, medication list, previous ER visits, and all imaging studies reviewed. Refilled all medications including carvedilol losartan amlodipine and atorvastatin. Given amlodipine and carvediol before leaving Discharge Plan Departure Patient Disposition: Home Clinical Impression: Hypertension, Dyslipidemia Activity Restrictions/Additional Instructions: return with new or worsening symptoms. take your medicines as directed. follow up and get established with PCP again. Prescriptions: New losartan 100 mg tablet 100 mg PO DAILY Qty: 30 0RF atorvastatin 80 mg tablet 80 mg PO BEDTIME Qty: 30 0RF carvedilol 6.25 mg tablet 6.25 mg PO BID Qty: 60 0RF Rx Instructions: must administer with a meal/food amlodipine 5 mg tablet 5 mg PO DAILY Qty: 30 0RF No Action Excedrin Migraine 250-250-65 mg Tablet 1 tab PO Q4-6H PRN (Reason: Headache) lisinopril 5 mg tablet 5 mg PO DAILY Qty: 30 0RF Stand Alone Forms: Patient Portal/API
[2025-01-24 20:48] VITALS: BP 187/128; PULSE 90; RESP 18; O2SAT 98
[2025-01-24 20:50] VITALS: BP 184/132
[2025-01-24 20:54] VITALS: PULSE 90
== END 2025-01-24 20:59 | disposition home or self-care (01) ==
PROVIDERS: Emergency Provider Family Medicine
DX: Z76.0 Encounter for issue of repeat prescription (principal); I10 Essential (primary) hypertension; E78.5 Hyperlipidemia, unspecified
CPT/HCPCS: 99283